=== PATIENT | female | born 1980 | race Caucasian/White ===

== ENCOUNTER → 2018-09-24 13:52 | Outpatient (CLI) | payer OTHER, SELFPAY ==
--- NOTE | 2018-09-24 | DI.MRI.S_ITS ---
PROCEDURE: MR SHOULDER RT WO CON INDICATIONS: BRUSITIS OF RT SHOULDER TECHNIQUE: Noncontrast oblique coronal T2 fast spin echo with fat saturation, oblique sagittal T1 spin echo and T2 fast spin echo with fat saturation, axial T1 spin echo and T2 fast spin echo with fat saturation through the shoulder. COMPARISON: None. FINDINGS: Image quality: Excellent. Rotator cuff: There are 2 small linear regions of bursal surface high T2 signal intensity within the posterior supraspinatus tendon at the musculotendinous junction. The supraspinatus, infraspinatus, and subscapularis tendons otherwise appear intact throughout. Sagittal images demonstrate no muscle atrophy. Bones and bursae: No bone marrow contusions or fractures. No acromioclavicular joint degeneration. The acromion demonstrates conventional anatomy, without an os acromiale. Minimal subacromial-subdeltoid or subcoracoid bursal fluid is present. Capsule and soft tissues: In the absence of intra-articular contrast, the labrum and glenohumeral ligaments appear intact. The long head of the biceps tendon demonstrates normal location and morphology. The rotator interval appears normal, without fibrosis. The coracohumeral ligament is normal in thickness. IMPRESSION: 1. Low-grade small bursal surface tears of the supraspinatus tendon. 2. Minimal subacromial bursitis. Dictated by: Maximino Flores M.D. on 09/24/2018 at 16:05 Approved by: Maximino Flores M.D. on 09/24/2018 at 16:06
== END ==
PROVIDERS: PCP Family Medicine; Visit Provider Orthopaedic Surgery
DX: M75.51 Bursitis of right shoulder (principal); M75.111 Incomplete rotator cuff tear or rupture of right shoulder, not specified as traumatic
CPT/HCPCS: 73221

== ENCOUNTER → 2019-06-16 13:18 | Outpatient (CLI) | payer OTHER, MEDICAID, SELFPAY ==
[2019-06-16 13:46] LABS: Appearance Urine UA SL CLOUDY; Bilirubin Urine UA NEGATIVE (NEGATIVE); Color Urine UA YELLOW; Glucose Urine UA NEGATIVE (Negative); Ketones Urine UA 1+ (NEGATIVE); Leukocyte Esterase Urine UA TRACE (NEGATIVE); Nitrite Urine UA NEGATIVE (Negative); Occult Blood Urine UA NEGATIVE (Negative); Protein Urine UA NEGATIVE (Negative); Specific Gravity Urine UA 1.015 (1.000-1.035); Urobilinogen Urine UA 0.2 E.U./dL (0.2)
[2019-06-16 13:48] LABS: RBC Urine None Seen (0-5/HPF)
[2019-06-16 13:54] LABS: Add Manual Diff / Slide Review NO; Basophils Absolute Auto 0 /uL (0-100); Basophils Percent Auto 0.2 % (0-2); Eosinophils Absolute Auto 200 /uL (0-450); Hemoglobin 11.6 g/dL (12.0-16.0); Lymphocytes Absolute Auto 1900 /uL (1100-4500); Mean Corpuscular HGB Conc 34.2 % (30-36); Mean Corpuscular Hemoglobin 26.9 PG (26-34); Mean Corpuscular Volume 78.7 fL (80-100); Monocytes Absolute Auto 500 /uL (0-900); Neutrophils Absolute Auto 6500 /uL (1500-7000); Neutrophils Percent Auto 71.8 % (50-75); Platelet Count 169 X10^3/uL (150-400); Red Blood Cell Count 4.32 X10^6/uL (4.0-5.2); Red Cell Distribution Width 19.3 % (11.6-14.8)
[2019-06-16 13:56] LABS: Amorphous Sediment Urine 3+; Bacteria Urine Few (2-10); Mucus Urine 3+ (Negative); Squamous Epithelial Cell Urine 5-10 /HPF (0-5/HPF); WBC Urine 1-5/HPF (0-5/HPF)
[2019-06-16 16:44] LABS: Hepatitis B Surface Antigen NEGATIVE s/c (NEGATIVE); Rubella Antibody IgG 13.1 IU/mL (>15)
[2019-06-16 16:50] LABS: HIV 1 & 2 Ab/Ag 4th Gen Combo NEGATIVE (NEGATIVE); Hep C Virus Ab w/Reflex Quant NEGATIVE s/c (NEGATIVE)
== END ==
PROVIDERS: PCP Family Medicine; Visit Provider Specialist
DX: Z34.81 Encounter for supervision of other normal pregnancy, first trimester (principal)
CPT/HCPCS: 36415; 80055; 81003; 81015; 86787; 86803; 86850; 86900; 86901; 87086; 87389

== ENCOUNTER → 2019-07-17 12:12 | Outpatient (CLI) | payer OTHER, MEDICAID, SELFPAY ==
--- NOTE | 2019-07-17 12:13 | DI.US.S_ITS ---
PROCEDURE: US OB >= 14 WEEKS FETUS INDICATIONS: ANATOMY SCAN OUTSIDE/PRIOR DATING DATA: First dating scan (date and location): 05/19/19. Estimated date of delivery (OLE) from first dating scan: 11/19/19. TECHNIQUE: Real-time scanning was performed of the fetus, with image documentation and biometric measurements. Endovaginal scanning: No COMPARISON: [facility], , OB >= 14 WEEKS FETUS, 06/25/2019, 11:14. FINDINGS: General: A single living intrauterine gestation is present. Presentation: Variable. Placenta: Placental position is posterior, without previa. Amniotic fluid index: 16.1 cm, normal range is 5-24 cm. heart rate: 158 beats per minute. Maternal cervical canal: 4.8 cm long. Normal lower limit is 2.5 cm. biometrics: Biparietal diameter: 21 weeks 6 days Head circumference: 22 weeks 3 days Abdominal circumference: 23 weeks 3 days Femur length: 22 weeks 4 days Estimated gestational age from initial scan: 22 weeks 1 day Composite gestational age from present scan: 22 weeks 5 days Estimated weight and percentile: 547 g; 82nd percentile Measurement variability for biometric dating: +/- 7 days from 14 weeks to 15 weeks 6 days gestation, +/- 10 days from 16 weeks to 21 weeks 6 days gestation, +/- 2 weeks from 22 weeks to 27 weeks 6 days gestation, +/- 3 weeks for 28 weeks gestation or later. weight reference: 4500 g or EFW >90/95% is considered macrosomia or large for gestational age. EFW <10% is small for gestational age. EFW 5% or less is considered intra-uterine growth restriction. Anatomic survey: Neuro: Ventricles are non-dilated at less than 10 mm. Cisterna magna is normal at 3-11 mm. Cerebellum is normal in size and morphology. Nuchal skin fold: Normal at less than 6 mm between 14-21 weeks gestational age. Face: Nose and lips, facial profile are normal. Spine: No evidence for spina bifida. Heart: 4-chambered heart is present, with normal ventricular outflow tracts. Left ventricular intracardiac focus. Diaphragm: Diaphragm is intact. Stomach: Left-sided stomach is present. Kidneys: No hydronephrosis. Normal is less than 5 mm in 2nd trimester, less than 7 mm in 3rd trimester. Cord: 3-vessel cord has orthotopic insertion. Bladder: Normal in size. Extremities: All 4 extremities identified. IMPRESSION: 1. Single living IUP redemonstrated and interval growth is normal. 2. Echogenic intracardiac focus: 1.4-1.8 fold likelihood of Down syndrome. If isolated finding, consider aneuploidy screening with cell-free DNA. If aneuploidy screen is negative, no further evaluation needed. Anatomic survey otherwise is normal. Dictated by: Bebeto Alvarenga [facility] Interpreted: Hugh Maxwell MD on 07/17/2019 at 14:37 Approved by: Hugh Maxwell M.D. on 07/17/2019 at 17:47
== END ==
PROVIDERS: PCP Family Medicine; Visit Provider Specialist
DX: Z36.89 Encounter for other specified antenatal screening (principal); Z3A.22 22 weeks gestation of pregnancy
CPT/HCPCS: 76811

== ENCOUNTER → 2019-08-28 09:54 | Outpatient (CLI) | payer OTHER, MEDICAID, SELFPAY ==
[2019-08-28 11:24] LABS: Hemoglobin 11.6 g/dL (12.0-16.0)
[2019-08-28 11:59] LABS: GTT (PREG) 1 Hour PP 50gm Dose 130 mg/dL (76-139)
== END ==
PROVIDERS: PCP Family Medicine; Visit Provider Specialist
DX: Z34.82 Encounter for supervision of other normal pregnancy, second trimester (principal)
CPT/HCPCS: 36415; 82950; 85014; 85018

== ENCOUNTER 2019-10-09 10:01 | Observation (INO) | payer OTHER, MEDICAID, SELFPAY ==
[2019-10-09 10:55] LABS: Add Manual Diff / Slide Review NO; Basophils Absolute Auto 100 /uL (0-100); Basophils Percent Auto 0.7 % (0-2); Eosinophils Absolute Auto 200 /uL (0-450); Eosinophils Percent Auto 1.5 % (2-4); Hematocrit 36.6 % (36-46); Hemoglobin 12.8 g/dL (12.0-16.0); Lymphocytes Absolute Auto 1700 /uL (1100-4500); Lymphocytes Percent Auto 12.7 % (25-40); Mean Corpuscular HGB Conc 35.1 % (30-36); Mean Corpuscular Hemoglobin 30.1 PG (26-34); Mean Corpuscular Volume 85.8 fL (80-100); Monocytes Absolute Auto 1000 /uL (0-900); Monocytes Percent Auto 7.4 % (3-14); Neutrophils Absolute Auto 10400 /uL (1500-7000); Neutrophils Percent Auto 77.7 % (50-75); Platelet Count 160 X10^3/uL (150-400); Red Blood Cell Count 4.27 X10^6/uL (4.0-5.2); Red Cell Distribution Width 14.9 % (11.6-14.8); White Blood Cell Count 13.5 X10^3/uL (4.5-11.0)
[2019-10-09 11:00] VITALS: BP 178/92; PULSE 114
[2019-10-09] MEDS: LABETALOL 20 MG/4 ML SYRINGE IV ×2 (11:00→11:30)
[2019-10-09 11:15] LABS: Alanine Aminotransferase 15 IU/L (<35); Albumin 3.6 g/dL (3.5-5.0); Albumin Globulin Ratio 1.2 (1.0-2.8); Alkaline Phosphatase 96 U/L (38-126); Aspartate Aminotransferase 24 IU/L (14-36); Bilirubin Total 0.4 mg/dL (0.2-1.3); Blood Urea Nitrogen 8 mg/dL (7-17); Calcium 9.5 mg/dL (8.4-10.2); Carbon Dioxide 19 mmol/L (22-32); Chloride 110 mmol/L (98-107); Estimated Glomerular Filt Rate > 60.0 mL/min (>60); Glucose 76 mg/dL (70-100); HEMOLYSIS 24 (0-50); Potassium 4.6 mmol/L (3.4-5.1); Sodium 137 mmol/L (137-145); Total Protein 6.6 g/dL (6.3-8.2)
[2019-10-09 11:30] VITALS: BP 180/76
[2019-10-09 11:40] LABS: Creatinine Urine Random 51.2 mg/dL; Protein (Total) Urine Random 14 mg/dL (0-12); Protein Creatinine Ratio Urine 0.27 GRAM/24H
[2019-10-09] MEDS: NIFEdipine 30 MG TAB ER PO (12:04)
--- NOTE | 2019-10-09 13:26 | PM.OBTRLD ---
Visit Information Visit Information Date of evaluation: 10/09/19 Primary OB Provider: Katlin Downs Reason for Evaluation: Yes non-stress test non-stress test reason: hypertension/pre-eclampsia Vital Signs Vital Signs: Vital Signs - 8 hr 10/09/19 11:00 10/09/19 11:30 Pulse Rate 114 H Blood Pressure 178/92 H 178/88 H PFSH Medical History (Updated 10/09/19 @ 13:30 by Katlin Downs MD) Hypertension (Acute) Surgical History (Updated 06/25/19 @ 11:19 by Katlin Downs MD) H/O section (Acute) Review of Systems Review of Systems Narrative: Patient denies headaches, epigastric pain and scotomata. She does feel unwell. ROS Unobtainable: All systems reviewed & are unremarkable except as noted in HPI and below Exam Vital Signs (past 8 hours): - 10/09/19 11:00 10/09/19 11:30 Pulse Rate 114 H Blood Pressure 178/92 H 178/88 H Narrative Exam Narrative: Lungs are clear to auscultation percussion. Heart is regular rate and rhythm no S3-S4 or murmurs. Abdomen is soft, nontender. Fetus is vertex. Patient has trace edema. DTRs are normal. Objective Labs Result Diagrams: 10/09/19 10:45 10/09/19 10:45 Labs: Laboratory Results - last 24 hr 10/09/19 10/09/19 10/09/19 10:30 10:45 10:45 WBC 13.5 H RBC 4.27 Hgb 12.8 Hct 36.6 MCV 85.8 MCH 30.1 MCHC 35.1 RDW 14.9 H Plt Count 160 Neut % (Auto) 77.7 H Lymph % (Auto) 12.7 L [place] % (Auto) 7.4 Eos % (Auto) 1.5 L Baso % (Auto) 0.7 Neut # (Auto) 88647 H Lymph # (Auto) 1700 [place] # (Auto) 1000 H Eos # (Auto) 200 Baso # (Auto) 100 Sodium 137 Potassium 4.6 Chloride 110 H Carbon Dioxide 19 L BUN 8 Creatinine 0.50 L Estimated GFR > 60.0 BUN/Creatinine Ratio 16.0 Glucose 76 Uric Acid 5.0 Calcium 9.5 Total Bilirubin 0.4 AST 24 ALT 15 Alkaline Phosphatase 96 Total Protein 6.6 Albumin 3.6 Globulin 3.0 Albumin/Globulin Ratio 1.2 U Random Total Protein 14 H Urine Creatinine 51.2 Protein/Creatinin Ratio 0.27 Evaluation Evaluation Baseline heart rate: 135 Variability: Moderate (11-25) monitor accelerations: Present monitor decelerations: Absent Contraction Frequency (minutes): 0 Laboratory results: Laboratory Tests 10/09/19 10/09/19 10/09/19 10:30 10:45 10:45 WBC 13.5 H RBC 4.27 Hgb 12.8 Hct 36.6 MCV 85.8 MCH 30.1 MCHC 35.1 RDW 14.9 H Plt Count 160 Neut % (Auto) 77.7 H Lymph % (Auto) 12.7 L [place] % (Auto) 7.4 Eos % (Auto) 1.5 L Baso % (Auto) 0.7 Neut # (Auto) 63183 H Lymph # (Auto) 1700 [place] # (Auto) 1000 H Eos # (Auto) 200 Baso # (Auto) 100 Sodium 137 Potassium 4.6 Chloride 110 H Carbon Dioxide 19 L BUN 8 Creatinine 0.50 L Estimated GFR > 60.0 BUN/Creatinine Ratio 16.0 Glucose 76 Uric Acid 5.0 Calcium 9.5 Total Bilirubin 0.4 AST 24 ALT 15 Alkaline Phosphatase 96 Total Protein 6.6 Albumin 3.6 Globulin 3.0 Albumin/Globulin Ratio 1.2 U Random Total Protein 14 H Urine Creatinine 51.2 Protein/Creatinin Ratio 0.27 Diagnosis, Plan/Disposition Final Diagnosis (1) Hypertension affecting in third trimester: Current Visit: No Status: Acute (2) 34 weeks gestation of : Current Visit: Yes Status: Acute Plan/Disposition Plan: Patient's blood pressure decreased after IV labetalol and addition of nifedipine. No signs or symptoms of preeclampsia with normal labs. Patient will increase her labetalol to 300 mg 2-3 times per day and nifedipine. She takes her blood pressure at home. She will call if her blood pressure does not decrease to less than 150/90 or any symptoms of preeclampsia. Patient will return for nonstress test in 4 days OB Disposition: home
== END 2019-10-09 13:30 | disposition home or self-care (01) ==
PROVIDERS: Admitting Provider Specialist; Visit Provider Specialist
DX: O10.913 Unspecified pre-existing hypertension complicating pregnancy, third trimester (principal); Z3A.34 34 weeks gestation of pregnancy
CPT/HCPCS: 59025; 59050; 80053; 82570; 84156; 84550; 85025; 96360; G0378; G0379

== ENCOUNTER 2019-10-13 14:48 | Outpatient (CLI) | payer OTHER, MEDICAID, SELFPAY ==
--- NOTE | 2019-10-13 15:25 | P.TNLD_ITS ---
Visit Information Visit Information Date of evaluation: 10/13/19 Primary OB Provider: Katlin Downs Reason for Evaluation: Yes non-stress test non-stress test reason: hypertension/pre-eclampsia Vital Signs Vital Signs: Blood pressure 140/82 [facility] Medical History (Updated 10/09/19 @ 13:30 by Katlin Downs MD) Hypertension (Acute) Surgical History (Updated 06/25/19 @ 11:19 by Katlin Downs MD) H/O section (Acute) Review of Systems Review of Systems Narrative: Patient denies headaches, scotomata, epigastric pain. Her blood pressures at home are improved with the highest blood pressure systolic 160. Patient was fatigued at 1st with the increased blood pressure medication doses but is feeling better now. Good movement. ROS Unobtainable: All systems reviewed & are unremarkable except as noted in HPI and below Evaluation Evaluation Baseline heart rate: 130 Variability: Moderate (11-25) monitor accelerations: Present monitor decelerations: Absent Category of Tracing: I Diagnosis, Plan/Disposition Final Diagnosis (1) Hypertension affecting in third trimester: Current Visit: No Status: Acute (2) 34 weeks gestation of : Current Visit: No Status: Acute Plan/Disposition Plan: Reactive nonstress test. Blood pressures improved. Continue weekly nonstress tests and OB appointments OB Disposition: home
== END 2019-10-13 15:40 | disposition home or self-care (01) ==
LOC: OB 16:43
PROVIDERS: PCP Physician Assistant Medical; Visit Provider Specialist
DX: O10.913 Unspecified pre-existing hypertension complicating pregnancy, third trimester (principal); Z3A.34 34 weeks gestation of pregnancy
CPT/HCPCS: 59025; G0378; G0379

== ENCOUNTER → 2019-10-24 13:43 | Outpatient (CLI) | payer OTHER, MEDICAID, SELFPAY ==
[2019-10-25 13:18] LABS: Strep Grp B PCR NEG for Grp B Strep
== END ==
PROVIDERS: PCP Physician Assistant Medical; Visit Provider Specialist
DX: Z34.83 Encounter for supervision of other normal pregnancy, third trimester (principal)
CPT/HCPCS: 87653

== ENCOUNTER 2019-10-24 13:46 | Outpatient (CLI) | payer OTHER, MEDICAID, SELFPAY ==
--- NOTE | 2019-10-24 14:19 | P.TNLD_ITS ---
Visit Information Visit Information Date of evaluation: 10/24/19 Primary OB Provider: Katlin Downs Reason for Evaluation: Yes non-stress test non-stress test reason: hypertension/pre-eclampsia Vital Signs Vital Signs: Blood pressure 147/81, pulse of 88, temperature 35? point [facility] Medical History (Updated 10/24/19 @ 14:20 by Katlin Downs MD) Hypertension (Acute) Surgical History (Updated 06/25/19 @ 11:19 by Katlin Downs MD) H/O section (Acute) Evaluation Evaluation Baseline heart rate: 135 Variability: Moderate (11-25) monitor accelerations: Present monitor decelerations: Absent Contraction Frequency (minutes): 0 Diagnosis, Plan/Disposition Final Diagnosis (1) Hypertension affecting in third trimester: Current Visit: No Status: Acute (2) 36 weeks gestation of : Current Visit: Yes Status: Acute Plan/Disposition Plan: Reactive nonstress test. Repeat nonstress test in 4 days with repeat section scheduled in 6 days. Precautions reviewed with the patient. OB Disposition: home
== END 2019-10-24 14:22 | disposition home or self-care (01) ==
LOC: LABOR 14:08 → OB 10-27 13:22
PROVIDERS: PCP Physician Assistant Medical; Visit Provider Specialist
DX: O10.913 Unspecified pre-existing hypertension complicating pregnancy, third trimester (principal); O09.523 Supervision of elderly multigravida, third trimester; Z3A.36 36 weeks gestation of pregnancy
CPT/HCPCS: 59025; 87653; G0378; G0379

== ENCOUNTER 2019-10-27 08:15 | Outpatient (CLI) | payer OTHER, MEDICAID, SELFPAY ==
--- NOTE | 2019-10-27 09:53 | DI.US.S_ITS ---
PROCEDURE: US OB BIOPHYSICAL PROFILE INDICATIONS: HYPERTENSION IN TECHNIQUE: Real-time scanning was performed of the fetus, with image documentation and biophysical profile was obtained. COMPARISON: [facility], US, US OB >= 14 WEEKS FETUS, 10/24/2019, 13:38. [facility], US, US OB >= 14 WEEKS FETUS, 10/16/2019, 12:07. [facility], US, US OB >= 14 WEEKS FETUS, 09/05/2019, 14:47. [facility], US, US OB >= 14 WEEKS FETUS, 06/25/2019, 11:14. [facility], US, US OB <= 14 WEEKS FETUS, 05/19/2019, 14:08. FINDINGS: General: A single living intrauterine gestation is present. Presentation: Cephalic Placenta: Placental position is posterior Amniotic fluid index: 7.9 cm, normal range is 5-24 cm. heart rate: 149 beats per minute. Maternal cervical canal: Not adequately seen Biophysical profile: Tone: 2/2 points. Movement: 2/2 points. Respiration: 2/2 points. Largest pocket of fluid: 2/2 points. (4.3 cm) IMPRESSION: 1. Normal biophysical profile. 2. Amniotic fluid index is within the lower limits of normal. Dictated by: Vasiliy Hough M.D. on 10/27/2019 at 10:11 Approved by: Vasiliy Hough M.D. on 10/27/2019 at 10:15
--- NOTE | 2019-10-27 10:32 | P.TNLD_ITS ---
Visit Information Visit Information Date of evaluation: 10/27/19 Primary OB Provider: Katlin Downs Reason for Evaluation: Yes non-stress test non-stress test reason: hypertension/pre-eclampsia Vital Signs Vital Signs: Blood pressure 123/58, pulse of 85, temperature 36.2? [facility] Medical History (Updated 10/24/19 @ 14:20 by Katlin Downs MD) Hypertension (Acute) Surgical History (Updated 06/25/19 @ 11:19 by Katlin Downs MD) H/O section (Acute) Objective Imaging US - abdomen: My impression: Good movement, tone, breathing, MILAGRO decreased to 4, grade 3 placenta Evaluation Evaluation Baseline heart rate: 150 Variability: Average (6-10) monitor accelerations: Present monitor decelerations: Absent Contraction Frequency (minutes): 0 Diagnosis, Plan/Disposition Final Diagnosis (1) 36 weeks gestation of : Current Visit: Yes Status: Acute (2) Hypertension affecting in third trimester: Current Visit: No Status: Acute Plan/Disposition Plan: Decreasing amniotic fluid. Patient is scheduled for in 4 days. Return tomorrow for repeat nonstress test OB Disposition: home
== END 2019-10-27 10:40 | disposition home or self-care (01) ==
LOC: LABOR 10:14 → OB 13:23
PROVIDERS: PCP Physician Assistant Medical; Visit Provider Specialist
DX: O10.913 Unspecified pre-existing hypertension complicating pregnancy, third trimester (principal); O09.523 Supervision of elderly multigravida, third trimester; Z3A.36 36 weeks gestation of pregnancy
CPT/HCPCS: 59025; 59050; 76815; 76819; G0378; G0379

== ENCOUNTER 2019-10-28 08:51 | Outpatient (CLI) | payer OTHER, MEDICAID, SELFPAY ==
[2019-10-28 16:42] VITALS: BP 151/65; PULSE 74; RESP 20; TEMP 36.9; O2SAT 100
[2019-10-28 16:47] VITALS: BP 139/75; PULSE 75; RESP 12; O2SAT 98
[2019-10-28 16:57] VITALS: BP 128/62; PULSE 70; RESP 20; O2SAT 99
--- NOTE | 2019-10-28 17:27 | SUR.PHASEI ---
Transferred patient to L&D in stable condition. VSS. Report given to Karoline.
== END 2019-10-28 10:35 | disposition home or self-care (01) ==
LOC: LABOR 10:13 → OB 12-15 09:39
PROVIDERS: Visit Provider Specialist
PROC: (CPT 59514; principal; 2019-10-28 15:45)
DX: O09.523 Supervision of elderly multigravida, third trimester (principal); O10.913 Unspecified pre-existing hypertension complicating pregnancy, third trimester; Z3A.36 36 weeks gestation of pregnancy
CPT/HCPCS: 59025; G0378; G0379

== ENCOUNTER 2019-10-28 13:54 | Inpatient (IN) | payer OTHER, MEDICAID, SELFPAY ==
--- NOTE | 2019-10-28 15:15 | PM.OBHP.1 ---
OB HPI Date/Time Date of admission: 10/28/19 Date Patient Seen: 10/28/19 Time Patient Seen: 15:16 History of Present Condition Chief complaint: [id number] REPEAT : 4 Para: 2 Estimated Date of Delivery: 11/19/19 Estimated Gestational Age (weeks): 36 Narrative: Megan Hines is a 39 year old female admitted for repeat section for hypertension and nonreassuring monitoring Indications Operative indications ( section): placental insufficiency (Nonreassuring monitoring with prior section) History of Present care: good care, initiated at week # (13), number of visits (9) and pounds weight gain (45) Dating criteria: LMP confirmed by 2nd trimester US Obstetrical complications: gestational hypertension Preadmission Labs Blood type: O (+) positive -: Antibody screen: negative, GBS status: negative, HBsAG: negative, HIV: negative and RPR/VDLR: negative -: Rubella: not immune and Varicella: immune HCAB: negative 1 hr GTT: 130 Prior (ies) History: 2005 40 week gestation 10 lb male section 2006 39 week gestation 12 lb 6 oz male repeat section Evaluation Evaluation Baseline heart rate: 140 Variability: Moderate (11-25) monitor accelerations: Present monitor decelerations: Absent Contraction Frequency (minutes): 6 Uterine Contraction Intensity: Mild Category of Tracing: II PFSH Medical History (Updated 10/24/19 @ 14:20 by Katlin Downs MD) Hypertension (Acute) Surgical History (Updated 06/25/19 @ 11:19 by Katlin Downs MD) H/O section (Acute) Meds Home Medications and Allergies Home Medications Medication Instructions Recorded Confirmed Type folic acid 400 mcg tablet 0.4 mg PO DAILY 08/21/18 08/21/18 History prenat.vits,elba,tyg-vovc-vcvfz 1 tab PO DAILY 05/19/19 05/19/19 History labetalol 300 mg tablet 300 mg PO BID #60 tab 10/09/19 10/09/19 Rx nifedipine 30 mg PO DAILY #30 tab 10/09/19 Rx Allergies Allergy/AdvReac Type Severity Reaction Status Date / Time codeine Allergy Mild Verified 08/21/18 10:49 Penicillins Allergy Mild Verified 08/21/18 10:49 No Known Allergies Allergy Uncoded 02/06/18 13:01 Review of Systems Review of Systems Narrative: No headaches, scotomata, epigastric pain. No leakage of fluid. No contractions. Good movement. ROS Unobtainable: All systems reviewed & are unremarkable except as noted in HPI and below Exam Vital Signs (past 8 hours): Blood pressure 175/101, pulse of 78, temperature 98.4? Narrative Exam Narrative: HEENT exam within normal limits. Lungs are clear to auscultation and percussion. Heart is regular rate and rhythm no S3-S4 or murmurs. Abdomen is soft, nontender. is vertex. Extremities without edema and nontender. Assessment and Plan Assessment and Plan Assessment and Plan narrative: 36 week gestation with hypertension and nonreassuring monitoring for repeat section
[2019-10-28 16:44] LABS: Add Manual Diff / Slide Review NO; Basophils Absolute Auto 0 /uL (0-100); Basophils Percent Auto 0.2 % (0-2); Eosinophils Absolute Auto 100 /uL (0-450); Eosinophils Percent Auto 1.3 % (2-4); Hematocrit 37.1 % (36-46); Hemoglobin 12.5 g/dL (12.0-16.0); Lymphocytes Absolute Auto 1400 /uL (1100-4500); Lymphocytes Percent Auto 14.6 % (25-40); Mean Corpuscular HGB Conc 33.6 % (30-36); Mean Corpuscular Hemoglobin 29.6 PG (26-34); Monocytes Absolute Auto 600 /uL (0-900); Monocytes Percent Auto 5.9 % (3-14); Neutrophils Absolute Auto 7400 /uL (1500-7000); Platelet Count 137 X10^3/uL (150-400); Red Blood Cell Count 4.21 X10^6/uL (4.0-5.2); Red Cell Distribution Width 14.8 % (11.6-14.8); White Blood Cell Count 9.4 X10^3/uL (4.5-11.0)
--- NOTE | 2019-10-28 17:03 | PM.OP.1 ---
Operative Date/Time/Diagnoses Date of procedure: 10/28/19 Time of procedure: 17:03 Pre-op diagnosis: 36 week gestation with hypertension, prior x2, nonreassuring monitoring Post-op diagnosis: same Procedure & Clinicians Procedure: Repeat low-transverse section Same procedure as scheduled: Yes Indications: Nonreassuring monitor with 2 prior sections at 36 weeks gestation Surgeon: Katlin Downs Regulation Supervisor: Kym Tipton Click Yes if Unassisted: No Anesthesia Type: Spinal Operative Notes Findings: Normal tubes ovaries and uterus. Viable male infant weighing 6 lb 9 oz with Apgars of 8 and 9 Closure Type: primary Specimen(s): none sent Applied: catheter (Pierre) Estimated Blood Loss (mL): 350 Blood products transfused: none Procedure in detail: The patient was brought to the operating room where she underwent a spinal for anesthesia. She was placed in a supine position with a left lateral tilt. A Pierre catheter was placed. Pulsatile stockings were placed and functional throughout the case. 900 mg of clindamycin were given IV prior to the incision. Warming was in place. The patient was prepped and draped in usual sterile fashion. A low transverse incision was made with a scalpel and the incision was carried down to the fascial layer which was incised transversely with scissors. The midline attachments are superiorly and inferiorly. Some bleeding was controlled Bovie. The rectus muscles were in the midline and the peritoneal incision was made with no damage to internal structures. The peritoneum was incised and superiorly and inferiorly. Bladder blade was placed and a bladder flap was developed and the bladder held away from the lower uterine segment. An incision was made in the uterus with the scalpel and the incision was extended with stretching. The head was elevated out of the abdomen and with fundal pressure the baby was delivered. The was bulb suctioned for clear fluid and handed off to the warmer. Cord blood was collected. The placenta delivered spontaneously with traction. The uterus was cleaned with clean laps. The uterine incision was closed in 2 layers of 0 chromic suture the first a running locking layer the second an imbricating layer. The bladder peritoneum was repaired with 2-0 Polysorb suture. The gutters were cleaned of any remaining fluids and ovaries and tubes were observed to be normal. Adequate hemostasis was noted. The perineum was closed with 2-0 Polysorb suture. The fascia layer was closed with 0 Polysorb suture with 2 stitches. The incision was irrigated and adequate hemostasis noted. The incision was closed with interrupted 3-0 Polysorb sutures and then a subcuticular stitch of 4-0 Polysorb suture. Steri-Strips were placed. The uterus was massaged to remove any clots. The patient went to recovery room in good condition. Counts of instruments and sponges were correct. Complications: none Post-operative Condition: stable Disposition: other ( Center) Plan for aftercare: Routine post section
[2019-10-28 18:53] VITALS: BP 163/84
[2019-10-28] MEDS: LABETALOL 100 MG TABLET 300 MG PO (20:10)
[2019-10-28 22:30] VITALS: BP 156/89; PULSE 82
[2019-10-28] MEDS: KETOROLAC 30 MG/ML VIAL IV (22:40)
[2019-10-29] MEDS: OXYCODONE/ACETAMINOPHEN 5/325 TABLET 2 TAB PO ×2 (01:53→20:57)
[2019-10-29] MEDS: KETOROLAC 30 MG/ML VIAL IV ×2 (05:31→12:27)
[2019-10-29 06:32] LABS: Add Manual Diff / Slide Review NO; Basophils Absolute Auto 0 /uL (0-100); Basophils Percent Auto 0.1 % (0-2); Eosinophils Absolute Auto 0 /uL (0-450); Eosinophils Percent Auto 0.3 % (2-4); Hematocrit 30.9 % (36-46); Hemoglobin 10.7 g/dL (12.0-16.0); Lymphocytes Absolute Auto 1600 /uL (1100-4500); Lymphocytes Percent Auto 11.2 % (25-40); Mean Corpuscular HGB Conc 34.8 % (30-36); Mean Corpuscular Volume 86.3 fL (80-100); Monocytes Absolute Auto 900 /uL (0-900); Monocytes Percent Auto 6.1 % (3-14); Neutrophils Absolute Auto 11700 /uL (1500-7000); Neutrophils Percent Auto 82.3 % (50-75); Platelet Count 132 X10^3/uL (150-400); Red Blood Cell Count 3.58 X10^6/uL (4.0-5.2); Red Cell Distribution Width 14.4 % (11.6-14.8); White Blood Cell Count 14.2 X10^3/uL (4.5-11.0)
[2019-10-29 06:40] VITALS: BP 167/80; PULSE 64
[2019-10-29] MEDS: LABETALOL 100 MG TABLET 300 MG PO ×3 (06:40→20:57)
[2019-10-29] MEDS: DOCUSATE 250 MG CAPSULE PO (09:06)
[2019-10-29] MEDS: NIFEdipine 30 MG TAB ER PO (09:06)
[2019-10-29] MEDS: OXYCODONE/ACETAMINOPHEN 5/325 TABLET 1 TAB PO ×2 (09:09→15:32)
--- NOTE | 2019-10-29 10:48 | PM.OBPN.1 ---
Subjective - OB Subjective Patient comments: no complaints, pain well controlled and tolerating diet baby status: doing well and nursing well Narrative: This patient is a 39yo with a history of cHTN, POD#1 s/p rCS for suspected placental insufficiency. The postoperative and intraoperative course were uncomplicated, and the patient reports feeling well today with no CEDENO, visual changes, fevers, chills, nausea, RUQ pain, or obstetrical complaints. She reports passing a voiding trial and making copious urine, tolerating a regular diet, and has good pain control this AM. She is ambulating well, and reports scant passage of flatus. Date Patient Seen: 10/29/19 Time Patient Seen: 10:51 Exam Vital Signs (past 8 hours): On review of nursing notes, BPs 160s-170s systolic overnight. Most recent BP 142/83, HR 74- 10/29/19 06:40 Pulse Rate 64 Blood Pressure 167/80 H Narrative Exam Narrative: Patient resting comfortably in bed, cuddling baby. Const General: cooperative and healthy appearing Resp Effort & Inspection: normal respiratory effort Auscultation: clear to auscultation bilaterally Cardio Rate: regular rate Rhythm: regular rhythm GI Palpation: soft and No tender Other: Fundus firm, well below u. Incision c/d/i, covered in bandage. Objective Labs Result Diagrams: 10/29/19 06:00 Labs: Laboratory Results - last 24 hr 10/28/19 10/28/19 10/29/19 15:14 15:14 06:00 WBC 9.4 14.2 H D RBC 4.21 3.58 L Hgb 12.5 10.7 L Hct 37.1 30.9 L MCV 88.0 86.3 MCH 29.6 30.0 MCHC 33.6 34.8 RDW 14.8 14.4 Plt Count 137 L 132 L Neut % (Auto) 78.0 H 82.3 H Lymph % (Auto) 14.6 L 11.2 L [place] % (Auto) 5.9 6.1 Eos % (Auto) 1.3 L 0.3 L Baso % (Auto) 0.2 0.1 Neut # (Auto) 7400 H 58470 H Lymph # (Auto) 1400 1600 [place] # (Auto) 600 900 Eos # (Auto) 100 0 Baso # (Auto) 0 0 Blood Type O Positive Antibody Screen Negative Assessment & Plan Plan day: 1 plan OB: routine care Comments: This patient has improved BP control this AM, on resumption of her home BP medication regimen of 300mg PO labetalol TID and 30XL PO nifedipine daily. She has no PIH symptoms, and is otherwise recovering appropriately. She reports no help at home, and will stay until tomorrow for monitoring of BP and until more robustly meeting postoperative goals. Triggers to call provider with elevated BPs reiterated with L&D staff. - Regular diet - Ambulation encouraged - BP meds as above - PO pain meds PRN Time Spent With Patient Time: Total time spent is greater than 50% in coordination of care (as documented) at patient's floor/unit and/or counseling patient: Time with patient: 15-24 minutes
[2019-10-29] MEDS: IBUPROFEN 600 MG TABLET PO (20:56)
[2019-10-30] MEDS: IBUPROFEN 600 MG TABLET PO ×2 (02:18→10:23)
[2019-10-30] MEDS: ACETAMINOPHEN 325 MG TABLET 650 MG PO (02:18)
[2019-10-30] MEDS: LABETALOL 100 MG TABLET 300 MG PO (05:58)
--- NOTE | 2019-10-30 07:36 | P.DS_ITS ---
Discharge Providers Provider Date of admission: 10/28/19 13:54 Discharge Date: 10/30/19 Consults: 10/28/19 17:37 Consult to [employer] Routine Comment: Discharge provider: Katlin Downs MD Summary Hospital Course Date Patient Seen: 10/30/19 Time Patient Seen: 07:37 Procedures: Repeat low-transverse section Hospital Course: Patient was admitted for repeat low-transverse section for 2 prior C- sections and nonreassuring monitoring. She is doing well post . She is tolerating pain medicine. Urinating and ambulating well. No headache, scotomata, or epigastric pain. Peripartum Data Delivery Method: Section Procedures: Repeat low-transverse section complications: none 1: Gender: Male Disposition of : home Discharge Diagnosis (1) Status post repeat low transverse section: Status: Acute (2) Hypertension affecting in third trimester: Status: Acute Status at Discharge Cognitive/behavioral status at discharge: oriented Functional status at discharge: independent ambulation Overall status at discharge: patient is progressing back to baseline Time Spent with Patient Time attestation: Total time spent providing and/or coordinating discharge services: Time spent: Less than 30 minutes Objective Labs Result Diagrams: 10/29/19 06:00 Exam Vital Signs (past 8 hours): Blood pressure 138/75, pulse 69, temperature 98.8? Narrative Exam Narrative: Abdomen is soft, nontender. Uterus is firm, U -1 with appropriate tenderness. Dressing is clean dry and intact. Mild lochia. +1 edema without tenderness of the extremities. Discharge Plan Discharge Plan Patient Disposition: Home Discharge orders & Medications Prescriptions: New oxycodone-acetaminophen 5-325 mg Tablet 2 tab PO Q4HR PRN (Reason: Pain, Severe (7-10)) Qty: 30 RF: 0 ibuprofen 600 mg Tablet 600 mg PO Q6HR PRN (Reason: Fever/Mild Pain (1-3)) Qty: 30 RF: 0 labetalol 100 mg Tablet 300 mg PO TID Qty: 90 RF: 0 docusate sodium 250 mg Capsule 250 mg PO DAILY Qty: 20 RF: 0 Continued prenat.vits,elba,kzj-liuj-cbnoe tablet 1 tab PO DAILY RF: 0 nifedipine 30 mg tablet extended release 30 mg PO DAILY Qty: 30 RF: 0 Discontinued labetalol 300 mg tablet 300 mg PO BID Qty: 60 RF: 0 folic acid 400 mcg tablet 0.4 mg PO DAILY RF: 0 Follow up/Referrals: Katlin Downs MD [Physician] - 1 Week (blood pressure and incision check) Diet/Activity/Treatments Diet: Regular Activity: Nothing in vagina for 4 weeks, do not lift over 20 lb for 6 weeks Skin/Wound/Dressing Care Report to your healthcare provider any signs of infection, such as:: chills, fever, increased pain and unusual redness Dressing: Leave dressing in place until 1 week postop exam
[2019-10-30] MEDS: NIFEdipine 30 MG TAB ER PO (10:22)
[2019-10-30] MEDS: DOCUSATE 250 MG CAPSULE PO (10:23)
== END 2019-10-30 11:25 | disposition home or self-care (01) | DRG 788 ==
LOC: AC 13:56 → LABOR 14:57
PROVIDERS: Admitting Provider Specialist; Visit Provider Specialist
DX: O36.8330 Maternal care for abnormalities of the fetal heart rate or rhythm, third trimester, not applicable or unspecified (principal); O36.5130 Maternal care for known or suspected placental insufficiency, third trimester, not applicable or unspecified; O13.4 Gestational [pregnancy-induced] hypertension without significant proteinuria, complicating childbirth; Z3A.36 36 weeks gestation of pregnancy; Z37.0 Single live birth
CPT/HCPCS: 36415; 59050; 59510; 59514; 85025; 86850; 86900; 86901; J1100; J1885; J2274; J2405; J2765

== ENCOUNTER → 2021-02-15 11:15 | Outpatient (CLI) | payer OTHER, SELFPAY ==
--- NOTE | 2021-02-15 | DI.MRI.S_ITS ---
PROCEDURE: MR CERVICAL SPINE WO CON INDICATIONS: Radiculopathy, cervical region TECHNIQUE: Noncontrast sagittal T1 spin echo and T2 fast spin echo, sagittal STIR, foraminal oblique sagittal T2 fast spin echo, and axial gradient echo or T2 fast spin echo through the cervical spine. COMPARISON: [facility] [place], CR, SPINE CERVICAL MIN 4VW, 01/08/2017, 14:10. [facility], CR, XR CERVICAL SPINE 6+ VIEWS, 01/31/2021, 14:32. FINDINGS: Image quality: Excellent. Alignment and Curvature: There is normal bony alignment. Bone Marrow: Marrow demonstrates normal overall signal. Spinal Cord: Visualized spinal cord has normal size and signal. No cerebellar tonsillar herniation. Paraspinous Soft Tissues: No paravertebral masses. Prevertebral soft tissues are normal in thickness. C2-C3: Normal appearance. C3-C4: The disc height and disc signal are relatively well preserved. A mild degree of generalized disc osteophyte complex is seen. Moderate facet hypertrophy is seen, right worse than left. There is moderate right-sided and moderate to severe left-sided neural foraminal narrowing seen. Mild central canal narrowing is seen. C4-C5: The disc height and disc signal are relatively well preserved. A mild degree of generalized disc osteophyte complex is seen. Moderate facet joint hypertrophy is seen. There is moderate right-sided and moderate to severe left-sided neural foraminal narrowing seen.2 Minimal central canal narrowing is seen. C5-C6: The disc height and disc signal are relatively well preserved. Mild to moderate disc osteophyte complex is seen. At least moderate facet hypertrophy can be seen at this level. There is moderate right-sided and at least moderate left-sided neural foraminal narrowing seen. Mild to moderate central canal narrowing is seen at this level. C6-C7: The disc height and disc signal are relatively well preserved. Mild to moderate disc bulge is seen. There is mild right-sided and moderate left-sided facet hypertrophy seen. There is moderate left-sided and mild right-sided neural foraminal narrowing seen. Mild central canal narrowing is seen. C7-T1: Normal appearance. IMPRESSION: Multiple levels of premature cervical spine degenerative changes are seen. Dictated by: Mike Mccarty M.D. on 02/15/2021 at 11:41 Approved by: Mike Mccarty M.D. on 02/15/2021 at 11:45
== END ==
PROVIDERS: PCP Internal Medicine; Referring Provider Anesthesiology; Visit Provider Anesthesiology
DX: M47.22 Other spondylosis with radiculopathy, cervical region (principal)
CPT/HCPCS: 72141

== ENCOUNTER 2022-11-23 06:33 | Day surgery (SDC) | payer OTHER, MEDICAID, SELFPAY ==
--- NOTE | 2022-11-23 | PATH_ITS ---
[facility] Accession Number: [id number] No. of containers..01 Tissue . 01 Material submitted: . face - LEFT PAROTID MASS . 01 Diagnosis: Left Parotid Mass, Excision: Pleomorphic adenoma, 2.7 cm. Neoplasm multifocally approximates the peripheral inked margin. No evidence of malignancy. MRV 11/28/2022 1303 Local . 01 Electronically signed: . Ángel Cardenas MD, PhD, Pathologist NPI- [id number] . 01 Gross description: . The specimen is received in formalin labeled with the patient's name, , and L parotid mass, and consists of an unoriented lobo smooth mass measuring 2.7 x 2.4 x 2.4 cm. The external surface is inked blue. The specimen is sectioned into seven slices to reveal an ill-defined lobo firm lesion within slices 2-4 measuring 1.6 x 1.5 x 1.2 cm and is 0.1 cm from the nearest margin. The remaining cut surface is pale lobo and soft. The specimen is submitted entirely as follows: A1: Slice 1, perpendicular. A2-A6: Single sequential slices. A7: Slice 7, perpendicular. ([id number]) /MRV 11/24/2022 1341 Local . 01 Pathologist provided ICD-10: D11.0 . 01 CPT . 495382 Specimen Comment: A courtesy copy of this report has been sent to [phone] Performed at: [facility] [address] [place] [address], [place], [place] [id number] MD Roland Peng MD Phone: [phone]
[2022-11-23 07:03] VITALS: BP 170/90; PULSE 105; RESP 16; TEMP 36.2; O2SAT 97; BMI 41.8
[2022-11-23] MEDS: LACTATED RINGERS 1,000 ML 84 ML IV ×2 (07:17→10:02)
--- NOTE | 2022-11-23 07:25 | PM.PREOP ---
Pre-operative Note Interval Note History & Physical reviewed/Exam performed by Physician: Yes Changes to H&P: No
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
--- NOTE | 2022-11-23 07:29 | PM.OP.1 ---
Operative Date/Time/Diagnoses Date of procedure: 11/23/22 Time of procedure: 10:36 Pre-op diagnosis: Left parotid mass, pleomorphic adenoma by prior FNA Post-op diagnosis: same Procedure & Clinicians Procedure: Left superficial parotidectomy with facial nerve dissection, facial nerve EMG monitoring Same procedure as scheduled: Yes Indications: 42-year-old female with FNA positive pleomorphic adenoma of the left parotid, presents for the above procedure. Following discussion of the material risks benefits complications and alternatives, she elected to proceed. Surgeon: Cipriano Thornton Carpenters Helper: Hank Herring Anesthesia Type: General and Local Operative Notes Findings: Nearly 3cm smooth encapulated mass inferior to the facial nerve trunk, deep within the gland, no further branch exposure necessary. Closure Type: primary Specimen(s): other (Left parotid mass) Estimated Blood Loss (mL): 30 Procedure in detail: Following identification and confirmation of consent, as well as LEFT site of lesion, the patient was brought to the operating room suite and placed in the supine position. General endotracheal anesthesia was administered. Head was turned to the RIGHT. A modified Edis incision was marked in ink from the preauricular area, posterior to the lobule, and extending into the neck. This was widely infiltrated with 1% lidocaine 1 100,000 epinephrine. Facial nerve EMG electrodes were placed and monitored throughout the case by the csr technician. Following sterile prep and drape, the skin and subcutaneous tissue was incised with a 15 blade and I elevated the subcutaneous flap anterior until beyond the borders of the parotid mass. Silk stay sutures were utilized for retraction. The anterior border of the SCM was identified and freed from the parotid tissue. I dissected parotid tissue from the tragal cartilage. The greater auricular nerve was sacrificed due to the location. The posterior belly of the digastric was identified and traced posteriorly. The intervening tissue deep to the tympanomastoid suture line was slowly dissected free until the main trunk of the facial nerve was identified, confirmed with the EMG stimulating electrode. Dissection anteriorly along the nerve trunk was performed approx 1cm until the well-encapsulated tumor was identified inferiorly. Blunt and minimal sharp dissection immediately on the mass was performed until the the mass was able to be freed in all dimensions, including deeply. The mass was resected and the main trunk was stimulated with normal response in all branches. The wound was irrigated with saline and then betadine and a blanca drain was placed through a portion of the incision posteriorly and sutured in place. The SMAS was partially reconstructed the fill in the operative defect. Subcutaneous tissue and deep dermis was closed with interrupted 4 0 chromic, followed by running 5 0 nylon for the skin. Antibiotic ointment was applied along with a fluff dressing. She was extubated in the operating room and taken to recovery room in stable condition without complication. Dr. Herring's assist was indicated due to the deep location of the tumor and large size, with increased difficulty of identifying and preserving the facial nerve. Complications: none Post-operative Condition: stable Disposition: same day surgery Plan for aftercare: Change drain dressings daily and as needed, Vaseline to the incision at all times, follow-up in 4 days for drain removal. Tylenol and Advil for pain control, oxycodone if necessary.
[2022-11-23 07:35] LABS: COVID19 -Nasal RAPID Negative (Negative)
[2022-11-23] MEDS: LIDOCAINE 1% W/EPI 20 ML INJ (08:09)
--- NOTE | 2022-11-23 08:15 | SUR.OPER ---
Supine on padded OR bed, head on gel donut tilted to right side, right arm secured on padded arm boards at <90 degrees abduction, left arm tucked and padded, legs uncrossed, safety belt at thigh, tape over blanket over lower legs, pillow under knees. Pt positioned per direction and supervision of Dr Thornton.
[2022-11-23] MEDS: BACITRACIN 28 GM OINT 1 APPLIC TOP (10:08)
[2022-11-23 10:59] VITALS: BP 174/104; PULSE 123; RESP 18; TEMP 37; O2SAT 94
[2022-11-23 11:05] VITALS: BP 175/107; PULSE 117; RESP 15; O2SAT 94
[2022-11-23 11:10] VITALS: BP 163/105; BP 178/108; PULSE 110; PULSE 117; RESP 16; RESP 20; TEMP 36.4; O2SAT 94
--- NOTE | 2022-11-23 11:22 | SUR.PHASEI ---
Dr Thornton at bedside assessment of facial nerves. pupils DIAN and pt smile symetrical at baseline in pre op
[2022-11-23 11:33] VITALS: BP 164/99; PULSE 115; RESP 16; TEMP 36.6; O2SAT 94
[2022-11-23 11:36] VITALS: BP 161/101; PULSE 115; RESP 16; TEMP 36.6; O2SAT 94
== END 2022-11-23 12:10 | disposition home or self-care (01) ==
PROVIDERS: PCP Internal Medicine; Referring Provider Otolaryngology; Visit Provider Otolaryngology
PROC: (CPT 42415; principal; 2022-11-23 07:45)
DX: D11.0 Benign neoplasm of parotid gland (principal); Z20.822 Contact with and (suspected) exposure to COVID-19
CPT/HCPCS: 42415; 87635; J0330; J1100; J1170; J2250; J2405; J2704; J3010